=== PATIENT | female | born 1985 | race Caucasian/White ===

== ENCOUNTER 2017-09-24 19:19 | Emergency (ER) | payer BC ==
[2017-09-24 19:30] VITALS: RESP 20; TEMP 97.5; O2SAT 100
[2017-09-24 19:37] VITALS: BP 165/95; PULSE 64
[2017-09-24] MEDS ORDERED: PROMETHAZINE HYDROCHLORIDE 25 MG/ML SOL IM ONE (19:46)
[2017-09-24] MEDS ORDERED: PROMETHAZINE HYDROCHLORIDE 25 MG/ML SOL ONE (19:59)
== END 2017-09-24 20:35 | disposition home or self-care (01) ==
LOC: ED 19:19
DX: G43.009 Migraine without aura, not intractable, without status migrainosus (principal)
CPT/HCPCS: 99282 ×2; J2550; 96372; 99283